=== PATIENT | female | born 1970 | race Hispanic/Latino ===

== ENCOUNTER 2018-09-15 14:49 | Emergency (ER) | payer BC ==
--- NOTE | 2018-09-15 15:01 | Emergency Department Report ---
Blank Doc - Documentation Documentation: 47 y/o female c/o in for light headedness, heart racing, numbness and tingling to upper extremities.
[2018-09-15] MEDS ORDERED: ATIVAN PO ONE ×2 (16:56→16:59)
--- NOTE | 2018-09-15 17:17 | Emergency Department Report ---
HPI - General Chief Complaint: Dizziness Time Seen by Provider: 09/15/18 16:05 - HPI HPI: This is a 47-year-old female with no problem medical conditions after locating who presents to ED if failing like her heart was racing earlier today when she was at work. Patient states that for sometime now she's been seen by GI doctor where she gets of fecal nerve palpitations. Cause is her to go into a panic attack. Patient states that she is seen by a cosigning primary care doctor who she had a recent appointment with them last 2 weeks where she was ultrasounded x-rayed recently for similar symptoms with no findings. Patient states that when this happens she tends to feel her heart beating fast and usually she is able to calm down by breathing techniques but today he got out of hand and she was not able to calm down. Patient states that she's had similar symptoms in the past and usually been able to control them with regular breathing techniques. she denies chest pain, fever, shortness of breath, nausea vomiting, diarrhea, abdominal pain. ED Past Medical Hx - Past Medical History Previous Medical History?: No - Surgical History Past Surgical History?: No - Social History Smoking Status: Never Smoker Substance Use Type: Alcohol - Medications Home Medications: Home Medications Medication Instructions Recorded Confirmed Last Taken Type LORazepam [Ativan] 1 mg PO QHS #15 tab 09/15/18 Unknown Rx ED Review of Systems ROS: Stated complaint: DIZZINESS/TINGLING IN EXTREMITIES Other details as noted in HPI Comment: All other systems reviewed and negative Physical Exam - Physical Exam Vital Signs: Vital Signs 09/15/18 15:01 Temperature 97.8 F Pulse Rate 90 Respiratory 16 Rate Blood Pressure 149/62 O2 Sat by Pulse 99 Oximetry Physical Exam: GENERAL: Alert and oriented x3, no apparent distress, Normal Gait, atraumatic. HEAD: Head is normocephalic and a-traumatic. EYES: Extra ocular muscles are intact. Pupils are equal, round, and reactive to light and accommodation. EARS: symetrical, atraumatic, non tender, ear canal clear and moderate cerumen, tympanic membrance non inflamed. gross auditory nml bilaterally. MOUTH:Mouth is well hydrated and without lesions. NECK: Supple. Non edematous, No carotid bruits. No lymphadenopathy or thyromegaly. No C-spine tenderness LUNGS: Symetrical with respiration, No wheezing, no rales or crackles, CTAB. HEART: S1, S2 present, regular rate and rhythm without murmur, no rubs, no gall ops. Non tender to palpation SKIN: Warm and dry, No lesions, No ulceration or induration present. ED Course Vital Signs 09/15/18 15:01 Temperature 97.8 F Pulse Rate 90 Respiratory 16 Rate Blood Pressure 149/62 O2 Sat by Pulse 99 Oximetry ED Medical Decision Making - Lab Data Result diagrams: 09/15/18 17:31 09/15/18 17:31 - Medical Decision Making 47-year-old female presents with panic attack Patient has a follow-up appointment with [facility] Basic labs obtained. Within normal limits Patient is requesting a psychologist referral referral given. Ativan 1 mg was administered. Patient states she feels much better bowel 30 minutes later after she was evaluated. Referrals given for psychologist. Patient is in no acute distress or respiratory distress. Critical care attestation.: If time is entered above; I have spent that time in minutes in the direct care of this critically ill patient, excluding procedure time. ED Disposition Clinical Impression: Panic attacks Disposition: DC-01 TO HOME OR SELFCARE Is pt being admited?: No Does the pt Need Aspirin: No Condition: Stable Instructions: Paresthesia (ED), Anxiety (ED) Additional Instructions: Make sure to follow up with the primary care physician as discussed. Follow-up with psychologist /therapist as discussed Take all your medications as you've been prescribed. If you have any worsening symptoms or develop new symptoms please return to ED immediately. Prescriptions: LORazepam [Ativan] 1 mg PO QHS #15 tab Referrals: MEHREEN LUNA MD [Staff Physician] - 3-5 Days JOSE MAGAÑA MD [Referring] - 3-5 Days RITU MARK MD [Staff Physician] - 3-5 Days BRENDON MEJIA MD [Staff Physician] - 3-5 Days Forms: Accompanied Note, Work/School Release Form(ED) Time of Disposition: 18:18
[2018-09-15 18:05] LABS: Hematocrit 43.5 % (30.3-42.9); Hemoglobin 14.9 gm/dl (10.1-14.3); Mean Corpuscular HGB Conc 34 % (30-34); Mean Corpuscular Volume 94 fl (79-97); Platelet Count 244 K/mm3 (140-440); Red Blood Count 4.63 M/mm3 (3.65-5.03); Red Cell Distribution Width 13.7 % (13.2-15.2)
[2018-09-15 18:43] LABS: Alanine Aminotransferase 14 units/L (7-56); Albumin 4.7 g/dL (3.9-5); BUN/Creatinine Ratio 15; Blood Urea Nitrogen 9 mg/dL (7-17); Calcium 9.7 mg/dL (8.4-10.2); Hemolysis Index 17
[2018-09-15 18:55] VITALS: BP 139/70
== END 2018-09-15 18:34 | disposition home or self-care (01) ==
LOC: ED 14:49
DX: F41.0 Panic disorder [episodic paroxysmal anxiety] (principal)
CPT/HCPCS: 36415; 80053; 85027; 99283